=== PATIENT | female | born 1935 | race Caucasian/White ===

== ENCOUNTER 2020-06-08 01:41 | Inpatient (IN) ==
--- NOTE | 2020-06-08 01:57 | Emergency Department Note ---
SOB HPI General Chief Complaint: Shortness of Breath/Dyspnea Stated Complaint: shortness of breath Time Seen by Provider: 06/08/20 01:52 Source: EMS Mode of arrival: EMS Limitations: no limitations History of Present Illness HPI Narrative: Narrative: This is a dialysis patient and resident of [facility] [place] who apparently refused her last 2 dialysis runs but tonight for some reason and became short of breath and the family decided to have her be a full code and come to the emergency room. Patient has a history of dementia and is not conversant. Related Data Home Medications Medication Instructions Recorded Confirmed PreserVison AREDS MISCELLANE 07/27/18 09/01/18 furosemide 80 mg tablet 40 mg PO QDAY 07/27/18 09/01/18 levothyroxine 137 mcg tablet 137 mcg PO QDAY 07/27/18 09/01/18 lovastatin 40 mg tablet 40 mg PO BID tab 07/27/18 09/01/18 methocarbamol 500 mg tablet 1,000 mg PO QID 07/27/18 09/01/18 midodrine 10 mg tablet mg PO tab 07/27/18 09/01/18 multivitamin 1 tab PO .COMPLEX 07/27/18 09/01/18 ondansetron 8 mg disintegrating 8 mg PO TID PRN 07/27/18 09/01/18 tablet sucroferric oxyhydroxide 500 mg 500 mg PO QDAY tab 07/27/18 09/01/18 chewable tablet tramadol 50 mg tablet See Rx Instructions PO QID PRN 07/27/18 09/01/18 Allergies Allergy/AdvReac Type Severity Reaction Status Date / Time codeine Allergy Unknown Unknown Verified 09/01/18 15:12 Cortisone Allergy Unknown Unknown Verified 09/01/18 15:12 Review of Systems ROS ROS Narrative: Narrative: Limitations: ROS unobtainable due to patients medical condition [facility] Narrative Patient History Narrative: Narrative: Medical/Surgical/Family History All Active Problems (Updated 06/08/20 @ 08:32 by Fabian Sesay MD) Urinary tract infection (Acute) Congestive heart failure (CHF) (Chronic) Flank pain (Chronic) Cystic kidney disease (Chronic) E. coli urinary tract infection (Chronic) Anemia of chronic disease (Chronic) Iron deficiency anemia (Chronic) Hypertensive urgency (Chronic) Hypercalcemia (Chronic) Anxiety (Chronic) Chronic low back pain (Chronic) Headache (Chronic) Constipation (Chronic) Nausea (Chronic) Generalized weakness (Chronic) Heart murmur (Chronic ~11/11/17) Abnormal weight loss (Chronic ~11/12/17) Osteopenia (Chronic ~11/11/17) Spinal stenosis of lumbar region (Chronic ~11/11/17) Cyst of pancreas (Chronic ~11/12/17) Diverticulitis of colon (Chronic ~02/02/18) Lymphedema (Chronic ~11/11/17) Hypertensive disorder (Chronic ~11/11/17) Obstructive sleep apnea syndrome (Chronic ~11/11/17) Insomnia (Chronic ~11/11/17) Depressive disorder (Chronic ~11/11/17) Anemia (Chronic ~11/11/17) Hypothyroidism (Chronic ~11/11/17) Vitamin D deficiency (Chronic) Vitamin B12 deficiency (Chronic) Urge incontinence (Chronic) Swelling of left lower extremity (Chronic) Renal osteodystrophy (Chronic) Severe obesity (Chronic) Nocturia (Chronic) Morbid obesity (Chronic) Limb swelling (Chronic) Hyperuricemia (Chronic) Hypertension, essential (Chronic) Secondary hyperparathyroidism of renal origin (Chronic) Hyperlipidemia (Chronic) Hypertensive chronic kidney disease (Chronic) Gout (Chronic) Edema (Chronic ~09/26/11) Type 2 diabetes mellitus without complications (Chronic) Degenerative joint disease (Chronic) Anemia in chronic kidney disease (Chronic) Chronic kidney disease, stage 4 (severe) (Chronic ~08/12/12) Medical History (Updated 06/08/20 @ 08:32 by Fabian Sesay MD) Abnormal weight loss (Chronic ~11/12/17) Anemia (Chronic ~11/11/17) Anemia in chronic kidney disease (Chronic) Anemia of chronic disease (Chronic) Anxiety (Chronic) Chronic kidney disease, stage 4 (severe) (Chronic ~08/12/12) Chronic low back pain (Chronic) Congestive heart failure (CHF) (Chronic) Constipation (Chronic) Cyst of pancreas (Chronic ~11/12/17) Cystic kidney disease (Chronic) Degenerative joint disease (Chronic) Depressive disorder (Chronic ~11/11/17) Diverticulitis of colon (Chronic ~02/02/18) E. coli urinary tract infection (Chronic) Edema (Chronic ~09/26/11) Flank pain (Chronic) Generalized weakness (Chronic) Gout (Chronic) Headache (Chronic) Heart murmur (Chronic ~11/11/17) Hypercalcemia (Chronic) Hyperlipidemia (Chronic) Hypertension, essential (Chronic) Hypertensive chronic kidney disease (Chronic) Hypertensive disorder (Chronic ~11/11/17) Hypertensive urgency (Chronic) Hyperuricemia (Chronic) Hypothyroidism (Chronic ~11/11/17) Insomnia (Chronic ~11/11/17) Iron deficiency anemia (Chronic) Limb swelling (Chronic) Lymphedema (Chronic ~11/11/17) Morbid obesity (Chronic) Nausea (Chronic) Nocturia (Chronic) Obstructive sleep apnea syndrome (Chronic ~11/11/17) Osteopenia (Chronic ~11/11/17) Renal osteodystrophy (Chronic) Secondary hyperparathyroidism of renal origin (Chronic) Severe obesity (Chronic) Spinal stenosis of lumbar region (Chronic ~11/11/17) Swelling of left lower extremity (Chronic) Type 2 diabetes mellitus without complications (Chronic) Urge incontinence (Chronic) Vitamin B12 deficiency (Chronic) Vitamin D deficiency (Chronic) Surgical History History of appendectomy (Chronic) History of arthroscopic knee surgery (Chronic ~2005) History of breast surgery (Chronic) History of cholecystectomy (Chronic) History of hernia repair (Chronic) History of hysterectomy (Chronic) History of ovarian cystectomy (Chronic) Benign History of salpingo-oophorectomy (Chronic) History of tonsillectomy and adenoidectomy (Chronic) Family History Father Hypertension, essential Heart disease Brother Macular degeneration Mother Kidney disease Other Bipolar disorder Emphysema, unspecified Heart failure Myocardial infarction Social History Smoking Status: Former smoker Alcohol Intake Frequency: does not drink Exam Narrative Narrative: Narrative: General Limitations: no limitations Head Head: Present atraumatic, normocephalic and normal inspection Eye Eye: Present normal appearance; Absent scleral icterus and conjunctival injection Chest Chest: Present normal inspection and symmetric chest wall rise Respiratory Respiratory: Present rales/crackles Cardiovascular Cardiovascular: Present regular rate, normal rhythm and normal heart sounds Adbominal Abdominal: Present soft; Absent distention and tenderness Extremities Extremities: Present pedal edema and pretibial edema Skin Skin: Present warm (WNL) and dry; Absent diaphoresis Course Vital Signs Vital signs: Vital Signs Temperature 98.1 F 06/08/20 01:44 Pulse Rate 118 H 06/08/20 01:44 Respiratory Rate 23 H 06/08/20 01:44 Blood Pressure 132/90 06/08/20 01:44 Pulse Oximetry (%) 96 06/08/20 01:44 Temperature 98.1 F 06/08/20 01:44 Pulse Rate 93 H 06/08/20 08:09 Respiratory Rate 16 06/08/20 08:09 Blood Pressure 80/45 06/08/20 08:09 Pulse Oximetry (%) 90 06/08/20 08:09 MDM MDM Narrative Medical decision making narrative: Narrative: Hyperkalemia was treated with rectal Kayexalate 60 g albuterol 10 mg and insulin and glucose. She was given Levaquin 750 mg for the UTI. We did give her Lasix with no output. I discussed the case with Dr. Roy and Dr. Avila she will be admitted to the hospital for acute dialysis. Lab Data Lab results reviewed: Yes I reviewed the patient's lab results. Lab results narrative: Potassium was 6.2 BNP was 19,000. She had a urinalysis consistent with UTI. Radiology Data Radiology results reviewed: Yes I reviewed the patient's radiology results. Radiology results narrative: Chest x-ray shows fluid overload to my reading but it is hard to read due to her obesity. Discharge Plan Patient/Caregiver Discharge Instructions Pt seen by [facility]/PA only: No Clinical Impression: Congestive heart failure (CHF), Chronic kidney disease, stage 4 (severe), Urinary tract infection Patient Disposition: Xfer As Inpt ([facility]) Follow up with: Parish Millan MD [Primary Care Provider] - Prescriptions: No Action furosemide 80 mg tablet 40 mg PO QDAY RF: 0 levothyroxine 137 mcg tablet 137 mcg PO QDAY RF: 0 lovastatin 40 mg tablet 40 mg PO BID RF: 0 midodrine 10 mg tablet PO RF: 0 multivitamin [Multiple Vitamins] tablet 1 tab PO .COMPLEX RF: 0 ondansetron 8 mg disintegrating tablet 8 mg tablet,disintegrating 8 mg PO TID PRNRF: 0 PreserVison AREDS MISCELLANE RF: 0 methocarbamol [Robaxin] 500 mg tablet 1,000 mg PO QID RF: 0 tramadol 50 mg tablet See Rx Instructions PO QID PRNRF: 0 Velphoro 500 mg tablet,chewable 500 mg PO QDAY RF: 0
[2020-06-08] MEDS ORDERED: FUROSEMIDE 40 MG/4 ML VIAL IV ONE ×2 (02:28→02:39)
[2020-06-08] MEDS ORDERED: 0.9 % SODIUM CHLORIDE 1,000 ML IV ONE (03:04)
[2020-06-08] MEDS ORDERED: INSULIN REGULAR, HUMAN 1 UNIT/0.01 ML UNIT IV ONE (04:38)
[2020-06-08] MEDS ORDERED: LEVOFLOXACIN 750 MG/150 ML BAG IV ONE ×2 (04:38→06:24)
[2020-06-08] MEDS ORDERED: DEXTROSE 50% 50 ML VIAL IV ONE ×2 (04:38→04:51)
[2020-06-08] MEDS ORDERED: ALBUTEROL SULFATE 5 MG/ML NEB SOLUTION BOTTLE NEB ONE ×2 (04:38→04:50)
[2020-06-08] MEDS ORDERED: SODIUM POLYSTYRENE SULFONATE 15 GM/60 ML SUSPENSION ONE (04:52)
[2020-06-08] MEDS ORDERED: INSULIN REGULAR, HUMAN 1 UNIT/0.01 ML UNIT ONE (04:53)
[2020-06-08] MEDS ORDERED: SODIUM POLYSTYRENE SULFONATE 15 GM/60 ML SUSPENSION PO ONE (05:36)
--- NOTE | 2020-06-08 08:17 | XRay Report ---
CLINICAL INFORMATION: sob COMPARISON: None. FINDINGS: The heart is moderately enlarged. Right IJ double-lumen catheter tip overlies the SVC right atrial junction in satisfactory position. Mediastinum is normal. Pulmonary vessels are moderately distended and there is mild interstitial edema probably perihilar regions. Moderate bilateral pleural effusions and moderate regions of dense consolidated atelectasis or infiltrate in both medial bases noted IMPRESSION: Moderate CHF Moderate sized consolidated infiltrate or atelectasis both medial bases with moderate bilateral pleural effusions Interpreted and Authenticated by: Erick Campbell 06/08/20
[2020-06-08] MEDS ORDERED: SODIUM POLYSTYRENE SULFONATE 15 GM/60 ML SUSPENSION PO SCH (09:00)
--- NOTE | 2020-06-08 09:31 | Consultation ---
DATE OF CONSULTATION: 06/08/2020 REASON FOR CONSULTATION: End-stage renal disease, fluid overload, and hyperkalemia. HISTORY OF PRESENT ILLNESS: The patient is an 84-year-old female with past medical history significant for end-stage renal disease on hemodialysis. She dialyzes three times a week. Apparently last week or so, her son had made her not continue her antidepressants, and she felt acutely depressed somewhat. She missed her last three dialysis treatments. Last night, she was found to be hypoxic and obtunded. For that reason, she was transferred to the emergency room at [facility]. In the emergency room, she continued to remain hypoxic and obtunded. Her chest x-ray showed volume overload. Her potassium was elevated. For that reason, a renal consultation was obtained. PAST MEDICAL HISTORY: 1. End-stage renal disease on hemodialysis. 2. History of chronic congestive heart failure. 3. History of anemia related to kidney disease. 4. History of hypertension. 5. Lymphedema with both lower extremities. 6. Obstructive sleep apnea. 7. Depression. 8. Vitamin D deficiency. 9. Renal osteodystrophy. FAMILY HISTORY: Significant for bipolar disorder, emphysema, and hypertension. SOCIAL HISTORY: She is currently staying at a facility. No history of smoking or alcohol use. MEDICATIONS: The medication list is not accurate, but she is supposed to be on Lasix. I think sertraline was the medication she is to take that has been discontinued. She is also on Tums with meals. REVIEW OF SYSTEMS: I could not obtain a review of systems as she is fairly obtunded. PHYSICAL EXAMINATION: GENERAL: On examination, she is obtunded, not arousable. She is on a non-rebreathing mask. HEENT: NC/AT. Pupils are reactive. External auditory canal appears normal. NECK: Supple. Does have about 10 cm of jugular venous distention. No lymphadenopathy, no thyromegaly. CHEST: Decreased air entry bilaterally. Rales heard in both bases. CARDIOVASCULAR: S1, S2 heard. No S3, S4. She has a 3/6 systolic murmur. ABDOMEN: Soft, nontender. No organomegaly. Positive bowel sounds. EXTREMITIES: Showed 3+ edema bilaterally. LABORATORY DATA: I was told that her potassium was 6.7, but I cannot see the lab results on the computer for some reason. IMAGING: Chest x-ray showed moderate congestive heart failure. ASSESSMENT AND PLAN: 1. End-stage renal disease, now currently volume overloaded and hyperkalemic. We will dialyze her on acute basis. We will attempt to remove about 3 kilos of fluid as tolerated. She may need another dialysis treatment tomorrow to optimize. 2. Urinary tract infection as per the hospitalist. 3. I will give her Lasix 120 mg x1 dose before the start of her dialysis. She also received treatment for hyperkalemia by the emergency room per Dr. Sesay. MIKE:marisela Job ID: [id number] Doc ID: [id number] Constantine Roy MD
--- NOTE | 2020-06-08 10:08 | Internal Med History&Physical ---
HPI History of Present Illness Patient information: Note initiated : 06/08/20 at 9:57 am Service Date, if different from initiated Date: [] Patient: Marianna Valencia a 84 y/o F admitted on 06/08/20 for SOB . Chief Complaint: [] History of present illness: Ms. Valencia is a 84 year old F Patient presents from [facility] due to increased shortness of breath and decreased LOC and hypoxic. She is refused last several sessions of hemodialysis. She does have a history of dementia. She also recently stopped her antidepressants. Chest x-ray doing volume overload. She typically is on 4 L of oxygen but was satting around 80 on arrival to the ED. Is currently on 7 L oxygen mask in the ICU. She says she does not feel too bad. She says her shortness of breath is not too bad. She says she has had nocturnal coughing for the over the past 6 months. Report of diarrhea per ICU staff She received Kayexalate and Lasix per Dr. Roy and will get urgent hemodialysis. Review of Systems: Pertinent positives as above. Denies headache/fever/chills/n ausea/vomiting/chest or abdominal pain. Remaining 10 point review of system reviewed negative PFSH PFSH All Active Problems (Updated 06/08/20 @ 08:32 by Fabian Sesay MD) Urinary tract infection (Acute) Congestive heart failure (CHF) (Chronic) Flank pain (Chronic) Cystic kidney disease (Chronic) E. coli urinary tract infection (Chronic) Anemia of chronic disease (Chronic) Iron deficiency anemia (Chronic) Hypertensive urgency (Chronic) Hypercalcemia (Chronic) Anxiety (Chronic) Chronic low back pain (Chronic) Headache (Chronic) Constipation (Chronic) Nausea (Chronic) Generalized weakness (Chronic) Heart murmur (Chronic ~11/11/17) Abnormal weight loss (Chronic ~11/12/17) Osteopenia (Chronic ~11/11/17) Spinal stenosis of lumbar region (Chronic ~11/11/17) Cyst of pancreas (Chronic ~11/12/17) Diverticulitis of colon (Chronic ~02/02/18) Lymphedema (Chronic ~11/11/17) Hypertensive disorder (Chronic ~11/11/17) Obstructive sleep apnea syndrome (Chronic ~11/11/17) Insomnia (Chronic ~11/11/17) Depressive disorder (Chronic ~11/11/17) Anemia (Chronic ~11/11/17) Hypothyroidism (Chronic ~11/11/17) Vitamin D deficiency (Chronic) Vitamin B12 deficiency (Chronic) Urge incontinence (Chronic) Swelling of left lower extremity (Chronic) Renal osteodystrophy (Chronic) Severe obesity (Chronic) Nocturia (Chronic) Morbid obesity (Chronic) Limb swelling (Chronic) Hyperuricemia (Chronic) Hypertension, essential (Chronic) Secondary hyperparathyroidism of renal origin (Chronic) Hyperlipidemia (Chronic) Hypertensive chronic kidney disease (Chronic) Gout (Chronic) Edema (Chronic ~09/26/11) Type 2 diabetes mellitus without complications (Chronic) Degenerative joint disease (Chronic) Anemia in chronic kidney disease (Chronic) Chronic kidney disease, stage 4 (severe) (Chronic ~08/12/12) Medical History (Updated 06/08/20 @ 08:32 by Fabian Sesay MD) Abnormal weight loss (Chronic ~11/12/17) Anemia (Chronic ~11/11/17) Anemia in chronic kidney disease (Chronic) Anemia of chronic disease (Chronic) Anxiety (Chronic) Chronic kidney disease, stage 4 (severe) (Chronic ~08/12/12) Chronic low back pain (Chronic) Congestive heart failure (CHF) (Chronic) Constipation (Chronic) Cyst of pancreas (Chronic ~11/12/17) Cystic kidney disease (Chronic) Degenerative joint disease (Chronic) Depressive disorder (Chronic ~11/11/17) Diverticulitis of colon (Chronic ~02/02/18) E. coli urinary tract infection (Chronic) Edema (Chronic ~09/26/11) Flank pain (Chronic) Generalized weakness (Chronic) Gout (Chronic) Headache (Chronic) Heart murmur (Chronic ~11/11/17) Hypercalcemia (Chronic) Hyperlipidemia (Chronic) Hypertension, essential (Chronic) Hypertensive chronic kidney disease (Chronic) Hypertensive disorder (Chronic ~11/11/17) Hypertensive urgency (Chronic) Hyperuricemia (Chronic) Hypothyroidism (Chronic ~11/11/17) Insomnia (Chronic ~11/11/17) Iron deficiency anemia (Chronic) Limb swelling (Chronic) Lymphedema (Chronic ~11/11/17) Morbid obesity (Chronic) Nausea (Chronic) Nocturia (Chronic) Obstructive sleep apnea syndrome (Chronic ~11/11/17) Osteopenia (Chronic ~11/11/17) Renal osteodystrophy (Chronic) Secondary hyperparathyroidism of renal origin (Chronic) Severe obesity (Chronic) Spinal stenosis of lumbar region (Chronic ~11/11/17) Swelling of left lower extremity (Chronic) Type 2 diabetes mellitus without complications (Chronic) Urge incontinence (Chronic) Vitamin B12 deficiency (Chronic) Vitamin D deficiency (Chronic) Surgical History History of appendectomy (Chronic) History of arthroscopic knee surgery (Chronic ~2005) History of breast surgery (Chronic) History of cholecystectomy (Chronic) History of hernia repair (Chronic) History of hysterectomy (Chronic) History of ovarian cystectomy (Chronic) Benign History of salpingo-oophorectomy (Chronic) History of tonsillectomy and adenoidectomy (Chronic) Family History Father Hypertension, essential Heart disease Brother Macular degeneration Mother Kidney disease Other Bipolar disorder Emphysema, unspecified Heart failure Myocardial infarction Social History (Updated 09/01/18 @ 16:58 by Yen Cantu MD) smoking status: Former smoker alcohol intake frequency: does not drink seatbelt use: always MEDS/ALLERGIES Home Medications and Allergies Home Medications Medication Instructions Recorded Confirmed Type PreserVison AREDS MISCELLANE 07/27/18 09/01/18 History furosemide 80 mg tablet 40 mg PO QDAY 07/27/18 09/01/18 History levothyroxine 137 mcg tablet 137 mcg PO QDAY 07/27/18 09/01/18 History lovastatin 40 mg tablet 40 mg PO BID tab 07/27/18 09/01/18 History methocarbamol 500 mg tablet 1,000 mg PO QID 07/27/18 09/01/18 History midodrine 10 mg tablet mg PO tab 07/27/18 09/01/18 History multivitamin 1 tab PO .COMPLEX 07/27/18 09/01/18 History ondansetron 8 mg disintegrating 8 mg PO TID PRN 07/27/18 09/01/18 History tablet sucroferric oxyhydroxide 500 mg 500 mg PO QDAY tab 07/27/18 09/01/18 History chewable tablet tramadol 50 mg tablet See Rx Instructions PO QID PRN 07/27/18 09/01/18 History Allergies Allergy/AdvReac Type Severity Reaction Status Date / Time codeine Allergy Unknown Unknown Verified 09/01/18 15:12 Cortisone Allergy Unknown Unknown Verified 09/01/18 15:12 EXAM Constitutional Vitals: Temp Pulse Resp BP Pulse Ox 98.1 F 93 H 16 89/44 90 06/08/20 09:25 06/08/20 09:25 06/08/20 09:25 06/08/20 09:25 06/08/20 09:25 Exam: General: Alert, Awake, No acute Distress Eyes/N/T: EOMI, PERRL, Head/Neck: neck supple, normocephalic atraumatic CV: RRR, 2/6 SM Pulm: b/l rhonchi/rales, no wheezing Abd: soft, nontender, +BS x4 Ext: no clubbing/cyanosis, b/l LE 3+ edema Neuro: Alert, no focal deficits, moves all extremities, CN 2-12 grossly intact, symmetrical strength b/l upper/lower, sensations intact b/l upper/lower Skin: warm/dry DATA Data Completed and Pending Labs: Labs from last 24 hours 06/08/20 06/08/20 06/08/20 02:03 01:53 01:53 WBC RBC Hgb Hct MCV MCH MCHC RDW Plt Count MPV Neut % (Auto) VBG Lactic Acid Pending Sodium Pending Potassium Pending Chloride Pending Carbon Dioxide Pending Anion Gap Pending BUN Pending Creatinine Pending GFR Calculation Pending Glucose Pending Calcium Pending Total Bilirubin Pending AST Pending ALT Pending Alkaline Phosphatase Pending NT-Pro-B Natriuret Pep Pending Total Protein Pending Albumin Pending Globulin Pending Albumin/Globulin Ratio Pending Urine Color Pending Urine Appearance Pending Urine pH Pending Ur Specific [place] Pending Urine Protein Pending Urine Glucose (UA) Pending Urine Ketones Pending Urine Occult Blood Pending Urine Nitrate Pending Urine Bilirubin Pending Urine Urobilinogen Pending Ur Leukocyte Esterase Pending 06/08/20 01:53 WBC Pending RBC Pending Hgb Pending Hct Pending MCV Pending MCH Pending MCHC Pending RDW Pending Plt Count Pending MPV Pending Neut % (Auto) Pending VBG Lactic Acid Sodium Potassium Chloride Carbon Dioxide Anion Gap BUN Creatinine GFR Calculation Glucose Calcium Total Bilirubin AST ALT Alkaline Phosphatase NT-Pro-B Natriuret Pep Total Protein Albumin Globulin Albumin/Globulin Ratio Urine Color Urine Appearance Urine pH Ur Specific [place] Urine Protein Urine Glucose (UA) Urine Ketones Urine Occult Blood Urine Nitrate Urine Bilirubin Urine Urobilinogen Ur Leukocyte Esterase A/P Narrative A/P Narrative: A: *Acute hypoxic respiratory failure: 2/2 pulm edema, pt has missed several sessions of HD *Acute on chronic diastolic CHF (home O2 is 4L): *Atelectasis/Pleural effusions: *Hyperkalemia: *ESRD: Follows with Dr. Roy *Anemia, chronic: *UTI: *RELL: ?cpap *Depression: *Lymphedema b/l LE: *Hypothyroidism: *Dementia: she states brother is POA *Obesity: * P: -HD and hyperkalemia per Dr. Roy -O2 support and wean as able -Balaephin, pending UC - -?home cpap -?on midodrine at home for low bp - -pT/OT -Case management for placement -ppx: Heparin/TEDS or lymph wraps clarify code status Time Spent With Patient Time: Total time spent is greater than 50% in coordination of care (as documented) at patient's floor/unit and/or counseling patient:
[2020-06-08] MEDS: FUROSEMIDE 100 MG/10 ML VIAL IV SCH ×2 (10:16→21:34)
[2020-06-08] MEDS ORDERED: POTASSIUM CHLORIDE 40 MEQ in DEXTROSE 5% IN WATER 500 ML IV PRN (10:26)
[2020-06-08] MEDS ORDERED: POTASSIUM CHLORIDE 20 MEQ TABLET PO PRN (10:26)
[2020-06-08] MEDS ORDERED: MAGNESIUM SULFATE 2 GM/50 ML BAG IV PRN (10:26)
[2020-06-08] MEDS ORDERED: IPRATROPIUM/ALBUTEROL 3 ML AMPUL.NEB NEB PRN (10:26)
[2020-06-08] MEDS ORDERED: ONDANSETRON 4 MG/2 ML VIAL IV PRN (10:26)
[2020-06-08] MEDS ORDERED: ACETAMINOPHEN 325 MG TABLET PO PRN (10:26)
[2020-06-08] MEDS ORDERED: SENNOSIDES 1 TABLET PO PRN (10:26)
[2020-06-08] MEDS ORDERED: cefTRIAXone 1 GM in DEXTROSE 5% IN WATER 50 ML IV SCH (10:30)
[2020-06-08] MEDS ORDERED: cefTRIAXone 1 GM VIAL IV SCH (11:00)
[2020-06-08] MEDS: 0.9 % SODIUM CHLORIDE 10 ML SYRINGE IV SCH ×2 (11:49→15:29)
[2020-06-08] MEDS ORDERED: MIDODRINE 5 MG TABLET PO PRN (12:07)
[2020-06-08 12:15] LABS: Appearance,Urine Turbid (Clear); Bacteria,Urine 0 /hpf (0); Bilirubin,Urine Negative (Negative); Color,Urine Amber; Culture Indicated,Urine No; Glucose,Urine (UA) Negative (Negative); Ketones,Urine Negative (Negative); Leukocyte Esterase,Urine 250 /ug (Negative); Nitrate,Urine Negative (Negative); Protein,Urine 100 mg/dL (Negative); Specific Gravity,Urine 1.015 (1.000-1.035); Urine Blood 0.03 mg/dL (Negative); Urine RBC > 182 /hpf (0-1); Urine Squamous Epithelial Cell 7 /hpf (0-4); Urine Transitional Epi Cells 7 /hpf (0-2); Urine WBC > 182 /hpf (0-4); Urobilinogen,Urine Negative
[2020-06-08 12:22] LABS: ALT/SGPT 5 U/L (<40); AST/SGOT 8 U/L (<32); Albumin 3.6 gm/dL (3.2-5.2); Alkaline Phosphatase 66 U/L (39-117); Bilirubin,Total 0.3 mg/dL (0.1-1.0); Blood Urea Nitrogen 66 mg/dL (8-23); Calcium 10.3 mg/dL (8.6-10.4); Carbon Dioxide 25 mmol/L (22-30); Chloride 99 mmol/L (96-108); Globulin 3.6 gm/dL (2.2-3.7); Glomerular Filtration Rate 4; Glucose 106 mg/dL (70-105)
[2020-06-08] MEDS ORDERED: ALTEPLASE 2 MG VIAL IV ONE ×2 (13:09→15:56)
[2020-06-08] MEDS ORDERED: traMADol 50 MG TABLET PO PRN (15:11)
[2020-06-08] MEDS ORDERED: POLYETHYLENE GLYCOL 3350 17 GM PACKET PO PRN (15:34)
[2020-06-08] MEDS ORDERED: CAMPHOR MENTHOL TOPICAL PRN (15:36)
[2020-06-08] MEDS: SEVELAMER 800 MG TABLET PO SCH (18:48)
[2020-06-08] MEDS ORDERED: morphine 4 MG/ML VIAL IV PRN (20:18)
[2020-06-08] MEDS: DOCUSATE SODIUM 100 MG CAPSULE PO SCH (20:56)
[2020-06-08] MEDS: SIMVASTATIN 20 MG TABLET PO SCH (20:56)
[2020-06-08] MEDS: HEPARIN 5,000 UNIT/ML VIAL SQ SCH (21:35)
[2020-06-09] MEDS: 0.9 % SODIUM CHLORIDE 10 ML SYRINGE IV SCH ×4 (02:53→21:14)
[2020-06-09 04:02] LABS: Basophils # (Auto) 0.07 K/mcL (0.00-0.20); Basophils % (Auto) 0.9 % (0.0-2.0); Eosinophils # (Auto) 0 K/mcL (0.00-0.70); Eosinophils % (Auto) 0 % (0.0-7.0); Hematocrit 36.9 % (36.0-48.0); Hemoglobin 10.7 g/dL (12.0-15.0); Lymphocytes # (Auto) 0.75 K/mcL (1.50-4.80); Lymphocytes % (Auto) 9.8 % (15.0-49.0); Mean Cell Volume 103.4 fL (80.0-100.0); Mean Platelet Volume 11.5 fL (7.4-10.4); Monocytes # (Auto) 0.67 K/mcL (0.10-0.90); Monocytes % (Auto) 8.7 % (1.0-12.0); Neutrophils % (Auto) 80.6 % (38.0-78.0); Platelet Count 253 K/mcL (140-440); RBC 3.57 M/mcL (4.00-5.20); Red Cell Distribution Width 16.6 % (11.5-14.5); WBC 7.7 K/mcL (4.5-11.0)
[2020-06-09 06:32] LABS: Basophils # (Auto) 0.07 K/mcL (0.00-0.20); Basophils % (Auto) 1.2 % (0.0-2.0); Eosinophils # (Auto) 0.11 K/mcL (0.00-0.70); Eosinophils % (Auto) 1.9 % (0.0-7.0); Hematocrit 35.7 % (36.0-48.0); Hemoglobin 9.5 g/dL (12.0-15.0); Lymphocytes # (Auto) 0.66 K/mcL (1.50-4.80); Lymphocytes % (Auto) 11.5 % (15.0-49.0); Mean Cell Volume 114.8 fL (80.0-100.0); Mean Corpuscular HGB Conc 26.6 g/dL (31.0-36.0); Mean Platelet Volume 10.8 fL (7.4-10.4); Monocytes # (Auto) 0.77 K/mcL (0.10-0.90); Monocytes % (Auto) 13.4 % (1.0-12.0); Platelet Count 152 K/mcL (140-440); RBC 3.11 M/mcL (4.00-5.20); Red Cell Distribution Width 17.2 % (11.5-14.5); WBC 5.8 K/mcL (4.5-11.0)
--- NOTE | 2020-06-09 07:49 | Internal Med Progress Note ---
SUBJECTIVE Subjective Patient information: Note initiated : 06/09/20 at 7:46 am Service Date, if different from initiated Date: [] Patient: Marianna Valencia 84 y/o F admitted on 06/08/20 for SOB . Chief Complaint: [] Interval history: History of present illness: Ms. Valencia is a 84 year old F Patient presents from [facility] due to increased shortness of breath and decreased LOC and hypoxic. She is refused last several sessions of hemodialysis . She does have a history of dementia. She also recently stopped her antidepressants. Chest x-ray doing volume overload. She typically is on 4 L of oxygen but was satting around 80 on arrival to the ED. Is currently on 7 L oxygen mask in the ICU. She says she does not feel too bad. She says her shortness of breath is not too bad. She says she has had nocturnal coughing for the over the past 6 months. Report of diarrhea per ICU staff She received Kayexalate and Lasix per Dr. Roy and will get urgent hemodialysis. 06/09 Intermittent low blood pressures. Did not do well with IV morphine last night. Was unable to take home tramadol orally because of concern for aspiration. Will change IV Tylenol. May get dialysis today. Chest x-ray much improved pulmonary edema also shows atelectasis and likely some right base infiltrate from aspiration. Review of Systems: denies headache/fever/chills/nausea/vomiting/chest or abdominal pain/diarrhea. Otherwise see above. Constitutional Vitals: Vital Signs Temp Pulse Resp BP Pulse Ox 98.9 F 93 H 19 144/56 95 06/09/20 04:00 06/09/20 06:01 06/09/20 06:01 06/09/20 06:01 06/09/20 06:01 Period Temp Pulse Resp BP Sys/Schaefer Pulse Ox Last 24 Hr 97 F-98.9 F 51-102 13-32 75-187/34-153 76-100 Intake and Output 06/08/20 06/09/20 06/09/20 21:59 05:59 13:59 Intake Total 0 Output Total 1979 Weight 91.49 kg Intake & Output: Intake & Output 06/08/20 06/09/20 06/09/20 21:59 05:59 13:59 Intake Total 0 Output Total 1979 Weight 91.49 kg Intake: Oral 0 Output: Void Amount 5 Hemodialysis UF 1979 Other: Urine Appearance Purulent Uretheral (Linda) Cloudy Cloudy Purulent Purulent Urine Color Light Antonia Uretheral (Linda) Blood Tinged Blood Tinged Stool Size Small Stool Color Brown Stool Consistency Soft # Bowel Movements 1 # of times incontinent of 1 Bowels Exam: General: Alert, Awake, No acute Distress Eyes/N/T: EOMI, , Head/Neck: neck supple, CV: RRR, 2/6 SM Pulm: b/l rhonchi/rales improving, no wheezing Abd: soft, nontender, +BS x4 Ext: no clubbing/cyanosis, b/l LE 2-3+ edema Neuro: Alert, no focal deficits, moves all extremities, Skin: warm/dry OBJ DATA Labs CBC & Chem 7: 06/09/20 04:54 06/08/20 01:53 Labs: Abnormal Lab Results 06/09/20 06/08/20 06/08/20 04:54 02:03 01:53 RBC 3.11 L Hgb 9.5 L Hct 35.7 L MCV 114.8 H MCHC 26.6 L RDW 17.2 H MPV 10.8 H Neut % (Auto) Lymph % (Auto) 11.5 L [place] % (Auto) 13.4 H Lymph # (Auto) 0.66 L VBG Lactic Acid 2.2 H Potassium BUN Creatinine Glucose NT-Pro-B Natriuret Pep Urine Appearance Turbid A Urine Occult Blood 0.03 A Ur Leukocyte Esterase 250 A Urine RBC > 182 H Urine WBC > 182 H Ur Squamous Epith Cells 7 H Ur Transition Epith Cell 7 H 06/08/20 06/08/20 01:53 01:53 RBC 3.57 L Hgb 10.7 L Hct MCV 103.4 H MCHC 29.0 L RDW 16.6 H MPV 11.5 H Neut % (Auto) 80.6 H Lymph % (Auto) 9.8 L [place] % (Auto) Lymph # (Auto) 0.75 L VBG Lactic Acid Potassium 6.2 H* BUN 66 H Creatinine 8.3 H* Glucose 106 H NT-Pro-B Natriuret Pep 54559.0 H Urine Appearance Urine Occult Blood Ur Leukocyte Esterase Urine RBC Urine WBC Ur Squamous Epith Cells Ur Transition Epith Cell Meds: Medications Acetaminophen (Tylenol) 650 mg PO Q6HP PRN PRN Reason: PAIN/FEVER > 101 Albuterol/Ipratropium (Duoneb) 3 ml NEB Q4HP PRN PRN Reason: Shortness Of Breath Ceftriaxone Sodium (Rocephin) 1 gm IV DAILY [facility] Last Admin: 06/08/20 11:48 Dose: 1 gm Documented by: Docusate Sodium (Colace) 100 mg PO BID [facility] Last Admin: 06/08/20 20:56 Dose: Not Given Documented by: Furosemide (Lasix) 100 mg IV Q12 [facility] Last Admin: 06/08/20 21:34 Dose: 100 mg Documented by: Heparin Sodium (Porcine) (Heparin) 5,000 unit SQ Q12 [facility] Last Admin: 06/08/20 21:35 Dose: 5,000 unit Documented by: Potassium Chloride 40 meq/ (Dextrose) 520 mls @ 130 mls/hr IV UD PRN PRN Reason: Potassium < 3 Magnesium Sulfate (Magnesium Sulfate) 2 gm in 50 mls @ 50 mls/hr IV UD PRN PRN Reason: Magnesium </= 1.6 Levothyroxine Sodium (Synthroid) 150 mcg PO ACB [facility] Midodrine (Midodrine Hcl) 20 mg PO DAILYP PRN PRN Reason: Blood Pressure - Low Last Admin: 06/08/20 17:03 Dose: 20 mg Documented by: Morphine Sulfate (Morphine) 1 - 3 mg IV Q4HP PRN; Protocol PRN Reason: Per Pain Protocol Last Admin: 06/08/20 21:18 Dose: 1 mg Documented by: Ondansetron HCl (Zofran) 4 mg IV Q4HP PRN PRN Reason: Nausea And Vomiting Camphor-Menthol (Ointment) 1 dose TOPICAL Q6HP PRN PRN Reason: Pain Polyethylene Glycol (Miralax) 17 gm PO BIDP PRN PRN Reason: Constipation Potassium Chloride (Kdur) 40 meq PO UD PRN PRN Reason: Potassium < 3 Senna (Senokot) 2 tab PO DAILYP PRN PRN Reason: Constipation Sertraline HCl (Zoloft) 25 mg PO QDAY [facility] Sevelamer Carbonate (Renvela) 800 mg PO AC [facility] Last Admin: 06/08/20 18:48 Dose: Not Given Documented by: Simvastatin (Zocor) 20 mg PO HS [facility] Last Admin: 06/08/20 20:56 Dose: Not Given Documented by: Sodium Chloride (Saline Flush) 10 ml IV Q8 [facility] Last Admin: 06/09/20 05:50 Dose: 10 ml Documented by: Tramadol HCl (Ultram) 50 mg PO Q12HP PRN; Protocol PRN Reason: Pain Last Admin: 06/08/20 15:39 Dose: 50 mg Documented by: A/P Narrative A/P Narrative: A: *Acute on chornic hypoxic/hypercapnic respiratory failure: 2/2 pulm edema and aspiration PNA, pt missed several HD sessions -7L oxymask with sats mid 90's, wean down. covid neg -CXR with near complete resolution of chr, moderate atelectasis and left pleural effusion, small right base infiltrate *Acute on chronic diastolic CHF (home O2 is 4L): -improving *Aspiration PNA: *Atelectasis/Pleural effusions: *Intermittent hypotension: *Hyperkalemia: *ESRD: Follows with Dr. Roy *Anemia, chronic: *UTI: *RELL: has not been on cpap at home *Depression: *Lymphedema b/l LE: *Hypothyroidism: *Dementia: she states brother is POA *Obesity: * P: -HD and hyperkalemia per Dr. Roy -O2 support and wean as able -Rocephin, pending UC -f/u cxr -home cpap -cont home midodrine prn -ST eval, dysphagia diet -pT/OT -Case management for placement -ppx: Heparin/TEDS or lymph wraps ?full code Time Spent With Patient Time: Total time spent is greater than 50% in coordination of care (as documented) at patient's floor/unit and/or counseling patient: QUALITY VTE Deep Vein Thrombosis/Pulmonary Embolism Present on Admission: No
--- NOTE | 2020-06-09 08:00 | XRay Report ---
CLINICAL INFORMATION: f/u edema, ?pna COMPARISON: 06/08/2020 FINDINGS: Moderate cardiomegaly is unchanged. Right IJ double-lumen catheter in stable satisfactory position. Mediastinum is unremarkable. Pulmonary vessels have returned to normal in caliber. Edema has improved with moderate residual perihilar region. Moderate consolidated infiltrate/atelectasis in the left base with moderate left pleural effusion unchanged. Smaller infiltrate in the right basal has progressed. Moderate right pleural effusion has increased in size. IMPRESSION: Near complete interval resolution CHF. Moderate consolidated region of atelectasis less likely infiltrate left base with moderate left pleural effusion stable. Smaller right basilar infiltrate moderate right pleural effusion has worsened slightly Interpreted and Authenticated by: Erick Campbell 06/09/20
[2020-06-09] MEDS ORDERED: NALOXONE HCL 0.4 MG/ML VIAL IV ONE (08:40)
[2020-06-09] MEDS ORDERED: 0.9 % SODIUM CHLORIDE 500 ML IV ONE (08:40)
[2020-06-09] MEDS ORDERED: NOREPINEPHRINE BITARTRATE 16 MG in 0.9 % SODIUM CHLORIDE 234 ML IV PRN (08:42)
[2020-06-09] MEDS ORDERED: NALOXONE HCL 0.4 MG/ML VIAL ONE (08:42)
[2020-06-09] MEDS: SEVELAMER 800 MG TABLET PO SCH ×3 (08:45→17:51)
[2020-06-09] MEDS ORDERED: cefTRIAXone 1 GM VIAL IV SCH (09:00)
[2020-06-09] MEDS ORDERED: SERTRALINE 50 MG TABLET PO SCH (09:00)
[2020-06-09] MEDS ORDERED: FUROSEMIDE 80 MG TABLET PO SCH (09:00)
[2020-06-09] MEDS ORDERED: MIDODRINE HCL 10 MG TABLET PO SCH (09:00)
[2020-06-09] MEDS: HEPARIN 5,000 UNIT/ML VIAL SQ SCH ×2 (10:23→21:12)
[2020-06-09] MEDS: FUROSEMIDE 100 MG/10 ML VIAL IV SCH ×2 (10:24→21:12)
[2020-06-09] MEDS: MIDODRINE 5 MG TABLET PO PRN ×2 (10:24→17:29)
[2020-06-09] MEDS: LEVOTHYROXINE 150 MCG TABLET PO SCH (10:25)
[2020-06-09] MEDS: cefTRIAXone 2 GM in DEXTROSE 5% IN WATER 50 ML IV SCH (10:25)
[2020-06-09] MEDS ORDERED: cefTRIAXone 2 GM VIAL ONE (10:27)
[2020-06-09] MEDS ORDERED: VASOPRESSIN 20 UNIT in DEXTROSE 5% IN WATER 99 ML IV PRN (10:45)
--- NOTE | 2020-06-09 10:54 | Nephrology Progress Note ---
SUBJECTIVE Subjective Patient information: Note initiated : 06/09/20 at 10:51 am Service Date, if different from initiated Date: [] Patient: Marianna Valencia 84 y/o F admitted on 06/08/20 for SOB . Chief Complaint: obtunded this morning. Constitutional Vitals: Vital Signs Temp Pulse Resp BP Pulse Ox 98.9 F 93 H 19 144/56 95 06/09/20 04:00 06/09/20 06:01 06/09/20 06:01 06/09/20 06:01 06/09/20 06:01 Period Temp Pulse Resp BP Sys/Schaefer Pulse Ox Last 24 Hr 97 F-98.9 F 61-102 14-32 75-187/37-153 88-100 Intake and Output 06/08/20 06/09/20 06/09/20 21:59 05:59 13:59 Intake Total 0 Output Total 1979 Weight 201 lb 11.2 oz Intake & Output: Intake & Output 06/08/20 06/09/20 06/09/20 21:59 05:59 13:59 Intake Total 0 Output Total 1979 Weight 201 lb 11.2 oz Intake: Oral 0 Output: Void Amount Hemodialysis 1979 Other: Urine Appearance Purulent Uretheral (Linda) Cloudy Cloudy Purulent Purulent Urine Color Light Antonia Uretheral (Linda) Blood Tinged Blood Tinged Stool Size Small Stool Color Brown Stool Consistency Soft # Bowel Movements 1 # of times incontinent of 1 Bowels Responded to norcan alert and oriented. Lungs mar rales cardiac regular pa soft ext 2+ edema. A/P Assessment and plan (1) ESRD (end stage renal disease) on dialysis: Status: Acute Comment: Had dialysis yesterday. Will try again today. Labs are still pending. will use vassopressin and midodrine for bp support Time Spent With Patient Time: Total time spent is greater than 50% in coordination of care (as documented) at patient's floor/unit and/or counseling patient:
--- NOTE | 2020-06-09 11:22 | Procedure Note ---
PROC Central Line Placement Left IJ: Consent obtained: verbal consent Date of Procedure: 06/09/20 Time out performed: Yes Patient placed on monitor/pulse ox: Yes MD prep: mask, sterile gown and sterile gloves Central line prep: 2% Chlorhexidine scrub Local anesthesia used: lidocaine 1% Amount of anesthesia used (mls): 2 Ultrasound used for placement: Yes Central line lumen inserted: quad and 20 cm Post procedure: sutured in place and all ports aspirated, flushed, capped Patient tolerated procedure: well Additional comments: stat cxr ordered to confirm placement
[2020-06-09] MEDS: DOCUSATE SODIUM 100 MG CAPSULE PO SCH ×2 (13:17→20:38)
[2020-06-09] MEDS: 0.9 % SODIUM CHLORIDE 250 ML IV SCH ×4 (13:17→22:10)
--- NOTE | 2020-06-09 13:37 | XRay Report ---
CLINICAL INFORMATION: central line placement COMPARISON: 06/09/2020 FINDINGS: Right IJ double-lumen catheter remains in stable satisfactory position. A new left IJ line has been placed - the tip is malpositioned overlying the expected location the right internal jugular vein. No pneumothorax.. The heart is moderately enlarged, but stable. Mediastinum is unremarkable. Pulmonary vessels remain normal. Moderate consolidated atelectasis or infiltrate left base with moderate left pleural effusion unchanged. Moderate infiltrate in the right base and moderate right pleural effusion is also unchanged. IMPRESSION: 1. Moderate consolidated atelectasis/infiltrate left base and left pleural effusion - stable 2. Moderate right basilar infiltrate with effusion stable 3. Left IJ line malpositioned - tip overlies the right IJ. Suggest withdraw catheter 5.5 cm. Interpreted and Authenticated by: Erick Campbell 06/09/20
--- NOTE | 2020-06-09 13:40 | XRay Report ---
CLINICAL INFORMATION: central line placement COMPARISON: 06/09/2020 1125 hours FINDINGS: Left IJ line has been retracted - tip now overlies the brachial cephalic SVC junction. Right IJ double-lumen catheter in stable satisfactory position. Moderate cardiomegaly is unchanged. The mediastinum and pulmonary vessels normal. Moderate consolidated infiltrate or atelectasis left base and moderate left pleural effusion stable. Moderate right basilar infiltrate and effusion also stable. IMPRESSION: No change in moderate bibasilar atelectasis/infiltrate and effusions. Left IJ line now satisfactory position Interpreted and Authenticated by: Erick Campbell 06/09/20
[2020-06-09 18:40] LABS: ALT/SGPT < 5 U/L (<40); AST/SGOT 11 U/L (<32); Albumin 3.1 gm/dL (3.2-5.2); Alkaline Phosphatase 52 U/L (39-117); Bilirubin,Direct < 0.2 mg/dL (<0.3); Bilirubin,Total 0.2 mg/dL (0.1-1.0); Blood Urea Nitrogen 17 mg/dL (8-23); Calcium 8.9 mg/dL (8.6-10.4); Carbon Dioxide 28 mmol/L (22-30); Chloride 96 mmol/L (96-108); Globulin 3.2 gm/dL (2.2-3.7); Glomerular Filtration Rate 15; Glucose 87 mg/dL (70-105); Lactate Dehydrogenase 167 U/L (135-225); Triglycerides 126 mg/dL (<150); Uric Acid 1.9 mg/dL (2.5-8.0)
[2020-06-09] MEDS: SIMVASTATIN 20 MG TABLET PO SCH (21:13)
[2020-06-09] MEDS: SERTRALINE 50 MG TABLET PO SCH (21:13)
[2020-06-09] MEDS: ACETAMINOPHEN 650 MG/65 ML BAG IV PRN (21:34)
[2020-06-10] MEDS: 0.9 % SODIUM CHLORIDE 10 ML SYRINGE IV SCH ×3 (04:45→22:07)
[2020-06-10 07:04] LABS: ALT/SGPT < 5 U/L (<40); AST/SGOT 9 U/L (<32); Albumin/Globulin Ratio 1.1 (1.0-2.3); Alkaline Phosphatase 47 U/L (39-117); Bilirubin,Direct < 0.2 mg/dL (<0.3); Bilirubin,Total 0.2 mg/dL (0.1-1.0); Blood Urea Nitrogen 12 mg/dL (8-23); Calcium 8.9 mg/dL (8.6-10.4); Carbon Dioxide 29 mmol/L (22-30); Chloride 98 mmol/L (96-108); Globulin 2.7 gm/dL (2.2-3.7); Glomerular Filtration Rate 17; Glucose 71 mg/dL (70-105); Lactate Dehydrogenase 145 U/L (135-225); Phosphorous 2.7 mg/dL (2.5-4.5); Triglycerides 114 mg/dL (<150); Uric Acid 1.7 mg/dL (2.5-8.0)
[2020-06-10] MEDS: LEVOTHYROXINE 150 MCG TABLET PO SCH (07:49)
--- NOTE | 2020-06-10 08:05 | Internal Med Progress Note ---
SUBJECTIVE Subjective Patient information: Note initiated : 06/10/20 at 8:02 am Service Date, if different from initiated Date: [] Patient: Marianna Valencia 84 y/o F admitted on 06/08/20 for SOB . Chief Complaint: [] Interval history: History of present illness: Ms. Valencia is a 84 year old F Patient presents from [facility] due to increased shortness of breath and decreased LOC and hypoxic. She is refused last several sessions of hemodialysis . She does have a history of dementia. She also recently stopped her antidepressants. Chest x-ray doing volume overload. She typically is on 4 L of oxygen but was satting around 80 on arrival to the ED. Is currently on 7 L oxygen mask in the ICU. She says she does not feel too bad. She says her shortness of breath is not too bad. She says she has had nocturnal coughing for the over the past 6 months. Report of diarrhea per ICU staff She received Kayexalate and Lasix per Dr. Roy and will get urgent hemodialysis. 06/09 Intermittent low blood pressures. Did not do well with IV morphine last night. Was unable to take home tramadol orally because of concern for aspiration. Will change IV Tylenol. May get dialysis today. Chest x-ray much improved pulmonary edema also shows atelectasis and likely some right base infiltrate from aspiration. Review of Systems: denies headache/fever/chills/nausea/vomiting/chest or abdominal pain/diarrhea. Otherwise see above. Constitutional Vitals: Vital Signs Temp Pulse Resp BP Pulse Ox 97.6 F 88 21 119/55 99 06/10/20 06:01 06/10/20 06:01 06/10/20 06:01 06/10/20 06:01 06/10/20 06:01 Period Temp Pulse Resp BP Sys/Schaefer Pulse Ox Last 24 Hr 96.6 F-99 F 71-105 15-29 44-140/18-109 74-100 Intake and Output 06/09/20 06/10/20 06/10/20 21:59 05:59 13:59 Intake Total 305 Output Total 2029 305 Weight 89.086 kg Intake & Output: Intake & Output 06/09/20 06/10/20 06/10/20 21:59 05:59 13:59 Intake Total 305 Output Total 2029 Balance 305 Weight 89.086 kg Intake: IV 65 Oral 240 Output: Urine Catheter Amount 0 Hemodialysis UF 2029 Other: Feeding Ability Independent Urine Appearance Uretheral (Linda) Cloudy Purulent Urine Color Uretheral (Ilnda) Blood Tinged Exam: General: Alert, Awake, No acute Distress Eyes/N/T: EOMI, , Head/Neck: neck supple, CV: RRR, 2/6 SM Pulm: clearing b/l, no wheezing Abd: soft, nontender, +BS x4 Ext: no clubbing/cyanosis, b/l LE 2+ edema improved Neuro: Alert, no focal deficits, moves all extremities, Skin: warm/dry OBJ DATA Labs CBC & Chem 7: 06/09/20 04:54 06/10/20 04:58 Labs: Abnormal Lab Results 06/10/20 06/10/20 06/09/20 04:59 04:58 17:50 RBC Hgb Hct MCV MCHC RDW MPV Neut % (Auto) Lymph % (Auto) [place] % (Auto) Lymph # (Auto) VBG Lactic Acid Potassium BUN Creatinine 2.5 H Glucose Uric Acid 1.7 L NT-Pro-B Natriuret Pep Total Protein 5.7 L Albumin 3.0 L Procalcitonin 0.50 H 0.46 H Urine Appearance Urine Occult Blood Ur Leukocyte Esterase Urine RBC Urine WBC Ur Squamous Epith Cells Ur Transition Epith Cell 06/09/20 06/09/20 06/08/20 17:50 04:54 02:03 RBC 3.11 L Hgb 9.5 L Hct 35.7 L MCV 114.8 H MCHC 26.6 L RDW 17.2 H MPV 10.8 H Neut % (Auto) Lymph % (Auto) 11.5 L [place] % (Auto) 13.4 H Lymph # (Auto) 0.66 L VBG Lactic Acid Potassium BUN Creatinine 2.8 H Glucose Uric Acid 1.9 L NT-Pro-B Natriuret Pep Total Protein Albumin 3.1 L Procalcitonin Urine Appearance Turbid A Urine Occult Blood 0.03 A Ur Leukocyte Esterase 250 A Urine RBC > 182 H Urine WBC > 182 H Ur Squamous Epith Cells 7 H Ur Transition Epith Cell 7 H 06/08/20 06/08/20 06/08/20 01:53 01:53 01:53 RBC 3.57 L Hgb 10.7 L Hct MCV 103.4 H MCHC 29.0 L RDW 16.6 H MPV 11.5 H Neut % (Auto) 80.6 H Lymph % (Auto) 9.8 L [place] % (Auto) Lymph # (Auto) 0.75 L VBG Lactic Acid 2.2 H Potassium 6.2 H* BUN 66 H Creatinine 8.3 H* Glucose 106 H Uric Acid NT-Pro-B Natriuret Pep 97326.0 H Total Protein Albumin Procalcitonin Urine Appearance Urine Occult Blood Ur Leukocyte Esterase Urine RBC Urine WBC Ur Squamous Epith Cells Ur Transition Epith Cell Meds: Medications Acetaminophen (Tylenol) 650 mg PO Q6HP PRN PRN Reason: PAIN/FEVER > 101 Albuterol/Ipratropium (Duoneb) 3 ml NEB Q4HP PRN PRN Reason: Shortness Of Breath Docusate Sodium (Colace) 100 mg PO BID [facility] Last Admin: 06/09/20 20:38 Dose: Not Given Documented by: Furosemide (Lasix) 100 mg IV Q12 [facility] Last Admin: 06/09/20 21:12 Dose: 100 mg Documented by: Heparin Sodium (Porcine) (Heparin) 5,000 unit SQ Q12 [facility] Last Admin: 06/09/20 21:12 Dose: 5,000 unit Documented by: Potassium Chloride 40 meq/ (Dextrose) 520 mls @ 130 mls/hr IV UD PRN PRN Reason: Potassium < 3 Magnesium Sulfate (Magnesium Sulfate) 2 gm in 50 mls @ 50 mls/hr IV UD PRN PRN Reason: Magnesium </= 1.6 Ceftriaxone Sodium 2 gm/ (Dextrose) 50 mls @ 100 mls/hr IV Q24H [facility] Last Infusion: 06/09/20 13:19 Dose: Infused Documented by: Norepinephrine Bitartrate 16 (mg/ Sodium Chloride) 250 mls @ 9.375 mls/hr IV PRN PRN; Protocol PRN Reason: Blood Pressure - Low Sodium Chloride (Sodium Chloride 0.9%) 250 mls @ 20 mls/hr IV .[id number] [facility] Last Admin: 06/09/20 20:40 Dose: Not Given Documented by: Acetaminophen (Ofirmev) 650 mg in 65 mls @ 130 mls/hr IV Q6HP PRN; Protocol PRN Reason: PAIN/FEVER > 101 Last Infusion: 06/09/20 22:04 Dose: Infused Documented by: Vasopressin 20 unit/ Dextrose 100 mls @ 12 mls/hr IV PRN PRN; Protocol PRN Reason: for systolic bp <100 duing lin Sodium Chloride (Sodium Chloride 0.9%) 250 mls @ 20 mls/hr IV .[id number] [facility] Last Admin: 06/09/20 22:10 Dose: Not Given Documented by: Levothyroxine Sodium (Synthroid) 150 mcg PO ACB [facility] Last Admin: 06/10/20 07:49 Dose: 150 mcg Documented by: Midodrine (Midodrine Hcl) 5 mg PO TID PRN PRN Reason: hypotension Last Admin: 06/09/20 17:29 Dose: 5 mg Documented by: Ondansetron HCl (Zofran) 4 mg IV Q4HP PRN PRN Reason: Nausea And Vomiting Camphor-Menthol (Ointment) 1 dose TOPICAL Q6HP PRN PRN Reason: Pain Polyethylene Glycol (Miralax) 17 gm PO BIDP PRN PRN Reason: Constipation Potassium Chloride (Kdur) 40 meq PO UD PRN PRN Reason: Potassium < 3 Senna (Senokot) 2 tab PO DAILYP PRN PRN Reason: Constipation Sertraline HCl (Zoloft) 50 mg PO HS [facility] Last Admin: 06/09/20 21:13 Dose: 50 mg Documented by: Sevelamer Carbonate (Renvela) 800 mg PO AC [facility] Last Admin: 06/09/20 17:51 Dose: Not Given Documented by: Simvastatin (Zocor) 20 mg PO HS [facility] Last Admin: 06/09/20 21:13 Dose: 20 mg Documented by: Sodium Chloride (Saline Flush) 10 ml IV Q8 [facility] Last Admin: 06/10/20 04:45 Dose: 10 ml Documented by: Tramadol HCl (Ultram) 50 mg PO Q12HP PRN; Protocol PRN Reason: Pain Last Admin: 06/08/20 15:39 Dose: 50 mg Documented by: A/P Assessment and plan (1) ESRD (end stage renal disease) on dialysis: Status: Acute Narrative A/P Narrative: A: *Acute on chornic hypoxic/hypercapnic respiratory failure (4L O2@home): 2/2 pulm edema & Asp PNA, missed several HD sessions -now on 2L NC. covid neg -CXR with near complete resolution of chr, moderate atelectasis and left pleural effusion, small right base infiltrate *Acute on chronic diastolic CHF (home O2 is 4L): -improving *Aspiration PNA: *Atelectasis/Pleural effusions: *Intermittent hypotension usually with dialysis: *Hyperkalemia: resolved *ESRD: Follows with Dr. Roy *Anemia, chronic: *UTI: *RELL: has not been on cpap at home *Depression: *Lymphedema b/l LE: *Hypothyroidism: *Dementia: she states brother is POA *Obesity: * P: -HD and hyperkalemia per Dr. Roy -O2 support and wean as able -Rocephin, pending UC -home cpap -cont home midodrine prn -ST eval, dysphagia diet -pT/OT -Case management for placement -ppx: Heparin/TEDS or lymph wraps Code status: sounds like she would prefer to be a DNR, I encouraged her to talk to family so all are on the same page Time Spent With Patient Time: Total time spent is greater than 50% in coordination of care (as documented) at patient's floor/unit and/or counseling patient: QUALITY VTE Deep Vein Thrombosis/Pulmonary Embolism Present on Admission: No
[2020-06-10] MEDS: SEVELAMER 800 MG TABLET PO SCH ×3 (08:17→18:48)
[2020-06-10] MEDS: FUROSEMIDE 100 MG/10 ML VIAL IV SCH ×2 (09:48→21:37)
[2020-06-10] MEDS: HEPARIN 5,000 UNIT/ML VIAL SQ SCH ×3 (09:48→21:40)
[2020-06-10] MEDS: ACETAMINOPHEN 650 MG/65 ML BAG IV PRN (09:49)
[2020-06-10] MEDS: cefTRIAXone 2 GM in DEXTROSE 5% IN WATER 50 ML IV SCH (09:49)
[2020-06-10] MEDS: 0.9 % SODIUM CHLORIDE 250 ML IV SCH ×4 (12:15→22:29)
[2020-06-10] MEDS: DOCUSATE SODIUM 100 MG CAPSULE PO SCH ×2 (12:15→21:33)
[2020-06-10] MEDS: SERTRALINE 50 MG TABLET PO SCH (21:33)
[2020-06-10] MEDS: SIMVASTATIN 20 MG TABLET PO SCH (21:33)
[2020-06-11] MEDS: 0.9 % SODIUM CHLORIDE 10 ML SYRINGE IV SCH ×3 (05:11→22:14)
[2020-06-11 06:03] LABS: Basophils # (Auto) 0.06 K/mcL (0.00-0.20); Basophils % (Auto) 1.3 % (0.0-2.0); Eosinophils # (Auto) 0.13 K/mcL (0.00-0.70); Eosinophils % (Auto) 2.8 % (0.0-7.0); Hematocrit 29.4 % (36.0-48.0); Hemoglobin 8.7 g/dL (12.0-15.0); Lymphocytes # (Auto) 0.88 K/mcL (1.50-4.80); Lymphocytes % (Auto) 19.1 % (15.0-49.0); Mean Cell Volume 100.3 fL (80.0-100.0); Mean Corpuscular HGB Conc 29.6 g/dL (31.0-36.0); Mean Platelet Volume 11.1 fL (7.4-10.4); Monocytes # (Auto) 0.62 K/mcL (0.10-0.90); Monocytes % (Auto) 13.4 % (1.0-12.0); Neutrophils % (Auto) 63.4 % (38.0-78.0); Platelet Count 196 K/mcL (140-440); RBC 2.93 M/mcL (4.00-5.20); Red Cell Distribution Width 15.6 % (11.5-14.5); WBC 4.6 K/mcL (4.5-11.0)
--- NOTE | 2020-06-11 07:45 | Internal Med Progress Note ---
SUBJECTIVE Subjective Patient information: Note initiated : 06/11/20 at 7:42 am Service Date, if different from initiated Date: [] Patient: Marianna Valencia a 84 y/o F admitted on 06/08/20 for SOB . Chief Complaint: [] Interval history: History of present illness: Ms. Valencia is a 84 year old F Patient presents from [facility] due to increased shortness of breath and decreased LOC and hypoxic. She is refused last several sessions of hemodialysis . She does have a history of dementia. She also recently stopped her antidepressants. Chest x-ray doing volume overload. She typically is on 4 L of oxygen but was satting around 80 on arrival to the ED. Is currently on 7 L oxygen mask in the ICU. She says she does not feel too bad. She says her shortness of breath is not too bad. She says she has had nocturnal coughing for the over the past 6 months. Report of diarrhea per ICU staff She received Kayexalate and Lasix per Dr. Roy and will get urgent hemodialysis. 06/09 Intermittent low blood pressures. Did not do well with IV morphine last night. Was unable to take home tramadol orally because of concern for aspiration. Will change IV Tylenol. May get dialysis today. Chest x-ray much improved pulmonary edema also shows atelectasis and likely some right base infiltrate from aspiration. 06/10 Doing better. Oxygen requirement less than home regimen. Electrolytes improved. Mentation much improved 06/11 Doing well. Transfer to med/surg status. Weight speech therapy evaluation Review of Systems: denies headache/fever/chills/nausea/vomiting/chest or abdominal pain/diarrhea. Otherwise see above. Constitutional Vitals: Vital Signs Temp Pulse Resp BP Pulse Ox 97.1 F 101 H 21 134/80 100 06/11/20 04:00 06/11/20 06:02 06/11/20 07:01 06/11/20 07:01 06/11/20 07:01 Period Temp Pulse Resp BP Sys/Schaefer Pulse Ox Last 24 Hr 97.1 F-98.7 F 80-120 16-31 115-150/42-104 86-100 Intake and Output 06/10/20 06/11/20 06/11/20 21:59 05:59 13:59 Intake Total 200 120 Balance 200 120 Weight 89.086 kg Intake & Output: Intake & Output 06/10/20 06/11/20 06/11/20 21:59 05:59 13:59 Intake Total 200 120 Balance 200 120 Weight 89.086 kg Intake: Oral 200 120 Exam: General: Alert, Awake, No acute Distress Eyes/N/T: EOMI, , Head/Neck: neck supple, CV: RRR, 2/6 SM Pulm: clearing b/l, no wheezing Abd: soft, nontender, +BS x4 Ext: no clubbing/cyanosis, b/l LE 2+ edema improved Neuro: Alert, no focal deficits, moves all extremities, Skin: warm/dry OBJ DATA Labs CBC & Chem 7: 06/11/20 05:10 06/10/20 04:58 Labs: Abnormal Lab Results 06/11/20 06/10/20 06/10/20 05:10 04:59 04:58 RBC 2.93 L Hgb 8.7 L Hct 29.4 L MCV 100.3 H MCHC 29.6 L RDW 15.6 H MPV 11.1 H Neut % (Auto) Lymph % (Auto) [place] % (Auto) 13.4 H Lymph # (Auto) 0.88 L VBG Lactic Acid Potassium BUN Creatinine 2.5 H Glucose Uric Acid 1.7 L NT-Pro-B Natriuret Pep Total Protein 5.7 L Albumin 3.0 L Procalcitonin 0.50 H Urine Appearance Urine Occult Blood Ur Leukocyte Esterase Urine RBC Urine WBC Ur Squamous Epith Cells Ur Transition Epith Cell 06/09/20 06/09/20 06/09/20 17:50 17:50 04:54 RBC 3.11 L Hgb 9.5 L Hct 35.7 L MCV 114.8 H MCHC 26.6 L RDW 17.2 H MPV 10.8 H Neut % (Auto) Lymph % (Auto) 11.5 L [place] % (Auto) 13.4 H Lymph # (Auto) 0.66 L VBG Lactic Acid Potassium BUN Creatinine 2.8 H Glucose Uric Acid 1.9 L NT-Pro-B Natriuret Pep Total Protein Albumin 3.1 L Procalcitonin 0.46 H Urine Appearance Urine Occult Blood Ur Leukocyte Esterase Urine RBC Urine WBC Ur Squamous Epith Cells Ur Transition Epith Cell 06/08/20 06/08/20 06/08/20 02:03 01:53 01:53 RBC Hgb Hct MCV MCHC RDW MPV Neut % (Auto) Lymph % (Auto) [place] % (Auto) Lymph # (Auto) VBG Lactic Acid 2.2 H Potassium 6.2 H* BUN 66 H Creatinine 8.3 H* Glucose 106 H Uric Acid NT-Pro-B Natriuret Pep 13613.0 H Total Protein Albumin Procalcitonin Urine Appearance Turbid A Urine Occult Blood 0.03 A Ur Leukocyte Esterase 250 A Urine RBC > 182 H Urine WBC > 182 H Ur Squamous Epith Cells 7 H Ur Transition Epith Cell 7 H 06/08/20 01:53 RBC 3.57 L Hgb 10.7 L Hct MCV 103.4 H MCHC 29.0 L RDW 16.6 H MPV 11.5 H Neut % (Auto) 80.6 H Lymph % (Auto) 9.8 L [place] % (Auto) Lymph # (Auto) 0.75 L VBG Lactic Acid Potassium BUN Creatinine Glucose Uric Acid NT-Pro-B Natriuret Pep Total Protein Albumin Procalcitonin Urine Appearance Urine Occult Blood Ur Leukocyte Esterase Urine RBC Urine WBC Ur Squamous Epith Cells Ur Transition Epith Cell Meds: Medications Acetaminophen (Tylenol) 650 mg PO Q6HP PRN PRN Reason: PAIN/FEVER > 101 Albuterol/Ipratropium (Duoneb) 3 ml NEB Q4HP PRN PRN Reason: Shortness Of Breath Docusate Sodium (Colace) 100 mg PO BID [facility] Last Admin: 06/10/20 21:33 Dose: Not Given Documented by: Furosemide (Lasix) 100 mg IV Q12 [facility] Last Admin: 06/10/20 21:37 Dose: 100 mg Documented by: Heparin Sodium (Porcine) (Heparin) 5,000 unit SQ Q12 [facility] Last Admin: 06/10/20 21:40 Dose: 5,000 unit Documented by: Potassium Chloride 40 meq/ (Dextrose) 520 mls @ 130 mls/hr IV UD PRN PRN Reason: Potassium < 3 Magnesium Sulfate (Magnesium Sulfate) 2 gm in 50 mls @ 50 mls/hr IV UD PRN PRN Reason: Magnesium </= 1.6 Ceftriaxone Sodium 2 gm/ (Dextrose) 50 mls @ 100 mls/hr IV Q24H [facility] Last Admin: 06/10/20 09:49 Dose: 100 mls/hr Documented by: Norepinephrine Bitartrate 16 (mg/ Sodium Chloride) 250 mls @ 9.375 mls/hr IV PRN PRN; Protocol PRN Reason: Blood Pressure - Low Sodium Chloride (Sodium Chloride 0.9%) 250 mls @ 20 mls/hr IV .[id number] [facility] Last Admin: 06/10/20 22:29 Dose: Not Given Documented by: Acetaminophen (Ofirmev) 650 mg in 65 mls @ 130 mls/hr IV Q6HP PRN; Protocol PRN Reason: PAIN/FEVER > 101 Last Infusion: 06/10/20 10:19 Dose: Infused Documented by: Vasopressin 20 unit/ Dextrose 100 mls @ 12 mls/hr IV PRN PRN; Protocol PRN Reason: for systolic bp <100 duing lin Sodium Chloride (Sodium Chloride 0.9%) 250 mls @ 20 mls/hr IV .[id number] [facility] Last Admin: 06/10/20 22:29 Dose: Not Given Documented by: Levothyroxine Sodium (Synthroid) 150 mcg PO ACB [facility] Last Admin: 06/10/20 07:49 Dose: 150 mcg Documented by: Midodrine (Midodrine Hcl) 5 mg PO TID PRN PRN Reason: hypotension Last Admin: 06/09/20 17:29 Dose: 5 mg Documented by: Ondansetron HCl (Zofran) 4 mg IV Q4HP PRN PRN Reason: Nausea And Vomiting Camphor-Menthol (Ointment) 1 dose TOPICAL Q6HP PRN PRN Reason: Pain Polyethylene Glycol (Miralax) 17 gm PO BIDP PRN PRN Reason: Constipation Potassium Chloride (Kdur) 40 meq PO UD PRN PRN Reason: Potassium < 3 Senna (Senokot) 2 tab PO DAILYP PRN PRN Reason: Constipation Sertraline HCl (Zoloft) 50 mg PO HS [facility] Last Admin: 06/10/20 21:33 Dose: 50 mg Documented by: Sevelamer Carbonate (Renvela) 800 mg PO AC [facility] Last Admin: 06/10/20 18:48 Dose: 800 mg Documented by: Simvastatin (Zocor) 20 mg PO HS [facility] Last Admin: 06/10/20 21:33 Dose: 20 mg Documented by: Sodium Chloride (Saline Flush) 10 ml IV Q8 [facility] Last Admin: 06/11/20 05:11 Dose: 10 ml Documented by: Tramadol HCl (Ultram) 50 mg PO Q12HP PRN; Protocol PRN Reason: Pain Last Admin: 06/08/20 15:39 Dose: 50 mg Documented by: A/P Narrative A/P Narrative: A: *Acute on chornic hypoxic/hypercapnic respiratory failure (4L O2@home): 2/2 pulm edema & Asp PNA, missed several HD sessions -now on 1-2L NC. covid neg -CXR with near complete resolution of chr, moderate atelectasis and left pleural effusion, small right base infiltrate *Acute on chronic diastolic CHF (home O2 is 4L): -improving *Aspiration PNA: *Atelectasis/Pleural effusions: *Intermittent hypotension usually with dialysis: improved *Hyperkalemia: resolved *ESRD: Follows with Dr. Roy *Anemia, chronic: *UTI: *RELL: has not been on cpap at home *Depression: *Lymphedema b/l LE: *Hypothyroidism: *Dementia: she states brother is POA *Obesity: * P: -HD and hyperkalemia per Dr. Roy -O2 support and wean as able -Rocephin, pending UC -home cpap -cont home midodrine prn -ST eval, dysphagia diet -pT/OT -Case management for placement -ppx: Heparin/TEDS or lymph wraps Code status: sounds like she would prefer to be a DNR, I encouraged her to talk to family so all are on the same page Time Spent With Patient Time: Total time spent is greater than 50% in coordination of care (as d ocumented) at patient's floor/unit and/or counseling patient: QUALITY VTE Deep Vein Thrombosis/Pulmonary Embolism Present on Admission: No
[2020-06-11] MEDS: SEVELAMER 800 MG TABLET PO SCH ×3 (08:04→17:05)
[2020-06-11 08:24] LABS: Blood Urea Nitrogen 19 mg/dL (8-23); Calcium 9.4 mg/dL (8.6-10.4); Carbon Dioxide 27 mmol/L (22-30); Chloride 93 mmol/L (96-108); Glomerular Filtration Rate 13; Glucose 85 mg/dL (70-105)
[2020-06-11] MEDS: LEVOTHYROXINE 150 MCG TABLET PO SCH (08:38)
[2020-06-11] MEDS: FUROSEMIDE 100 MG/10 ML VIAL IV SCH (08:38)
[2020-06-11] MEDS: DOCUSATE SODIUM 100 MG CAPSULE PO SCH ×2 (08:39→21:54)
[2020-06-11] MEDS: cefTRIAXone 2 GM in DEXTROSE 5% IN WATER 50 ML IV SCH (08:40)
[2020-06-11] MEDS: HEPARIN 5,000 UNIT/ML VIAL SQ SCH ×2 (08:46→22:13)
--- NOTE | 2020-06-11 10:29 | Discharge Summary ---
Discharge Provider Provider Patient information: Note initiated : 06/11/20 at 10:26 am Service Date, if different from initiated Date: [] Patient: Marianna Valencia 84 y/o F admitted on 06/08/20 for SOB . Chief Complaint: [] Date of admission: 06/08/20 09:16 Discharge date: 06/12/20 Primary care physician: Parish Millan Consults: 06/08/20 08:06 Consult to Physician [CONS] Stat Comment: Consulting Provider: Leonard Avila Reason For Exam: Physician to Consult Consult to Physician [CONS] Stat Comment: Consulting Provider: Rajiv García Reason For Exam: Physician to Consult Discharge Meds Discharge Medications Home Medications furosemide 80 mg tablet 80 mg PO QDAY 07/27/18 [History Confirmed 06/08/20 Last Taken Unknown] lovastatin 40 mg tablet 40 mg PO QDAY tab 07/27/18 [History Confirmed 06/08/20 Last Taken Unknown] midodrine 10 mg tablet 20 mg PO QDAY tab 07/27/18 [History Confirmed 06/08/20 Last Taken Unknown] Fleet Enema 118 ml NJ PRN PRN 06/08/20 [History Confirmed 06/08/20 Last Taken U nknown] acetaminophen 500 mg PO Q8H PRN 06/08/20 [History Confirmed 06/08/20 Last Taken Unknown] ascorbic acid (vitamin C) [Vitamin C] 500 mg PO QDAY 06/08/20 [History Confirmed 06/08/20 Last Taken Unknown] bisacodyl 10 mg [place] QDAY PRN 06/08/20 [History Confirmed 06/08/20 Last Taken Unknown] bisacodyl [Dulcolax (bisacodyl)] 5 mg PO DAILY PRN 06/08/20 [History Confirmed 06/08/20 Last Taken Unknown] camphor-menthol 1 applic TOPICAL Q6H PRN 06/08/20 [History Confirmed 06/08/20 Last Taken Unknown] docusate sodium [Colace] 100 mg PO BID 06/08/20 [History Confirmed 06/08/20 Last Taken Unknown] levothyroxine 150 mcg PO QDAY 06/08/20 [History Confirmed 06/08/20 Last Taken Unknown] polyethylene glycol 3350 [GlycoLax] 17 g PO BID PRN 06/08/20 [History Confirmed 06/08/20 Last Taken Unknown] sertraline 25 mg PO QDAY 06/08/20 [History Confirmed 06/08/20 Last Taken Unknown] sevelamer carbonate [Renvela] 0.8 g PO AC 06/08/20 [History Confirmed 06/08/20 Last Taken Unknown] amoxicillin-pot clavulanate [Augmentin] 1 tab PO Q12H #2 tab 06/11/20 [Rx Last Taken Unknown] tramadol See Rx Instructions PO QID PRN #20 tab 06/12/20 [Rx Last Taken Unknown] COURSE Hospital Course Hospital course: History of present illness: Ms. Valencia is a 84 year old F Patient presents from [facility] due to increased shortness of breath and decreased LOC and hypoxic. She is refused last several sessions of hemodialysis. She does have a history of dementia. She also recently stopped her antidepressants. Chest x-ray doing volume overload. She typically is on 4 L of oxygen but was satting around 80 on arrival to the ED. Is currently on 7 L oxygen mask in the ICU. She says she does not feel too bad. She says her shortness of breath is not too bad. She says she has had nocturnal coughing for the over the past 6 months. Report of diarrhea per ICU staff She received Kayexalate and Lasix per Dr. Roy and will get urgent hemodialysis. 06/09 Intermittent low blood pressures. Did not do well with IV morphine last night. Was unable to take home tramadol orally because of concern for aspiration. Will change IV Tylenol. May get dialysis today. Chest x-ray much improved pulmonary edema also shows atelectasis and likely some right base infiltrate from aspiration. 06/10 Doing better. Oxygen requirement less than home regimen. Electrolytes improved. Mentation much improved 06/11 Doing well. Transfer to med/surg status. Weight speech therapy evaluation 06/12 no new issues. Confusion on whether or not she has CPAP at home for obstructive sleep apnea. She does not she needs evaluation for it. A: *Acute on chornic hypoxic/hypercapnic respiratory failure (4L O2@home): 2/2 pulm edema & Asp PNA, missed several HD sessions *Acute on chronic diastolic CHF (home O2 is 4L): *Aspiration PNA: *Atelectasis/Pleural effusions: *Intermittent hypotension usually with dialysis: improved *Hyperkalemia: resolved *ESRD: Follows with Dr. Roy *Anemia, chronic: *UTI: *RELL: ?has not been on cpap at home *Depression: *Lymphedema b/l LE: *Hypothyroidism: *Dementia: she states brother is POA *Obesity: Discharge diagnosis: Acute on chronic hypoxic hypercapnic respiratory failure acute on chronic d Secondary discharge diagnosis: Acute on chronic diastolic heart failure aspiration pneumonia atelectasis hyperkalemia end-stage renal disease chronic anemia UTI obstructive sleep apnea depression lymphedema hypothyroidism and dementia obesity Time Spent with Patient Time attestation: Total time spent providing and/or coordinating discharge services: Time spent: Greater than 30 minutes EXAM Constitutional Vitals: Temp Pulse Resp BP Pulse Ox 98.7 F 89 21 132/97 93 06/11/20 08:01 06/11/20 08:01 06/11/20 10:01 06/11/20 10:01 06/11/20 10:01 Discharge Data Data Completed and Pending Labs on day of discharge: Labs from last 24 hours 06/11/20 06/11/20 05:10 05:10 WBC 4.6 RBC 2.93 L Hgb 8.7 L Hct 29.4 L MCV 100.3 H MCH 29.7 MCHC 29.6 L RDW 15.6 H Plt Count 196 MPV 11.1 H Neut % (Auto) 63.4 Lymph % (Auto) 19.1 [place] % (Auto) 13.4 H Eos % (Auto) 2.8 Baso % (Auto) 1.3 Lymph # (Auto) 0.88 L [place] # (Auto) 0.62 Eos # (Auto) 0.13 Baso # (Auto) 0.06 Absolute Neutrophils 2.92 Sodium 134 Potassium 3.3 Chloride 93 L Carbon Dioxide 27 Anion Gap 14.0 BUN 19 Creatinine 3.2 H GFR Calculation 13 Glucose 85 Calcium 9.4 Discharge Plan Patient/Caregiver Discharge Instructions Activity: increase activity as tolerated Diet: Dysphagia Level 7 Easy to Chew Foods Activity Restrictions/Additional Instructions: Follow-up with speech therapy, PT and OT Prescriptions: New amoxicillin-pot clavulanate [Augmentin] 875-125 mg tablet 1 tab PO Q12H Qty: 2 RF: 0 Continued furosemide 80 mg tablet 80 mg PO QDAY RF: 0 lovastatin 40 mg tablet 40 mg PO QDAY RF: 0 midodrine 10 mg tablet 20 mg PO QDAY RF: 0 levothyroxine 150 mcg tablet 150 mcg PO QDAY RF: 0 sertraline 50 mg tablet 25 mg PO QDAY RF: 0 acetaminophen 500 mg Tablet 500 mg PO Q8H PRN (Reason: Pain) RF: 0 ascorbic acid (vitamin C) [Vitamin C] 500 mg Tablet 500 mg PO QDAY RF: 0 camphor-menthol Ointment 1 applic TOPICAL Q6H PRN (Reason: Pain) RF: 0 bisacodyl 10 mg Suppository 10 mg [place] QDAY PRN (Reason: Constipation) RF: 0 Fleet Enema 19-7 gram/118 mL Enema 118 ml [place] PRN PRN (Reason: Constipation) RF: 0 docusate sodium [Colace] 100 mg Capsule 100 mg PO BID RF: 0 bisacodyl [Dulcolax (bisacodyl)] 5 mg Tablet,Delayed Release (Dr/Ec) 5 mg PO DAILY PRN (Reason: Constipation) RF: 0 polyethylene glycol 3350 [GlycoLax] 17 gram/dose Powder 17 g PO BID PRN (Reason: Constipation) RF: 0 sevelamer carbonate [Renvela] 0.8 gram Powder In Packet 0.8 g PO AC RF: 0 tramadol 50 mg tablet See Rx Instructions PO QID PRN (Reason: Pain) Qty: 20 RF: 0 Follow Up Plan Follow up with: Constantine Roy MD [Physician] - Parish Millan MD [Primary Care Provider] - Tariq Clarke MD [Physician] - (RELL, cpap eval) Patient Disposition: Xfer SNF Prognosis: Undetermined Rehab Potential: Fair I certify that the patient requires SNF services: Yes Overall status at discharge: patient is progressing back to baseline Discharge Orders: Discharge Order (Routine); Ordered 06/12/20 Ordered By: Leonard Krause Counts include 234 beds at the [facility] VTE Deep Vein Thrombosis/Pulmonary Embolism Present on Admission: No
[2020-06-11] MEDS ORDERED: ONDANSETRON 4 MG/2 ML VIAL IV PRN (10:35)
[2020-06-11] MEDS ORDERED: SENNOSIDES 1 TABLET PO PRN (10:35)
[2020-06-11] MEDS ORDERED: IPRATROPIUM/ALBUTEROL 3 ML AMPUL.NEB NEB PRN (10:35)
[2020-06-11] MEDS ORDERED: traMADol 50 MG TABLET PO PRN (10:35)
[2020-06-11] MEDS ORDERED: NOREPINEPHRINE BITARTRATE 16 MG in 0.9 % SODIUM CHLORIDE 234 ML IV PRN (10:35)
[2020-06-11] MEDS ORDERED: MAGNESIUM SULFATE 2 GM/50 ML BAG IV PRN (10:35)
[2020-06-11] MEDS ORDERED: VASOPRESSIN 20 UNIT in DEXTROSE 5% IN WATER 99 ML IV PRN (10:35)
[2020-06-11] MEDS ORDERED: ACETAMINOPHEN 650 MG/65 ML BAG IV PRN (10:35)
[2020-06-11] MEDS ORDERED: POTASSIUM CHLORIDE 40 MEQ in DEXTROSE 5% IN WATER 500 ML IV PRN (10:35)
[2020-06-11] MEDS ORDERED: POTASSIUM CHLORIDE 20 MEQ TABLET PO PRN (10:35)
[2020-06-11] MEDS ORDERED: 0.9 % SODIUM CHLORIDE 250 ML IV SCH ×3 (10:35)
[2020-06-11] MEDS ORDERED: CAMPHOR MENTHOL TOPICAL PRN (10:35)
[2020-06-11] MEDS ORDERED: ACETAMINOPHEN 325 MG TABLET PO PRN (10:35)
[2020-06-11] MEDS ORDERED: POLYETHYLENE GLYCOL 3350 17 GM PACKET PO PRN (10:35)
[2020-06-11] MEDS ORDERED: MIDODRINE 5 MG TABLET PO PRN (10:35)
--- NOTE | 2020-06-11 17:04 | Nephrology Progress Note ---
SUBJECTIVE Subjective Patient information: Note initiated : 06/11/20 at 5:02 pm Service Date, if different from initiated Date: [] Patient: Marianna Valencia 84 y/o F admitted on 06/08/20 for SOB . Chief Complaint: Sleepy now but apparently she was awake this morning. Constitutional Vitals: Vital Signs Temp Pulse Resp BP Pulse Ox 97 F 73 16 125/63 94 06/11/20 16:11 06/11/20 16:06 06/11/20 16:11 06/11/20 16:11 06/11/20 16:11 Period Temp Pulse Resp BP Sys/Schaefer Pulse Ox Last 24 Hr 97 F-98.7 F 73-120 15-28 86-151/42-104 93-100 Intake and Output 06/11/20 06/11/20 06/11/20 05:59 13:59 21:59 Intake Total 120 50 Output Total 2000 Balance 120 50 -2000 Intake & Output: Intake & Output 06/11/20 06/11/20 06/11/20 05:59 13:59 21:59 Intake Total 120 50 Output Total 2000 Balance 120 50 -2000 Intake: IV 50 Rocephin 2 gm In Dextrose 5% in 50 Water 50 ml @ 100 mls/hr IV Q24H [id number] Rx#:[id number] Oral 120 Output: Hemodialysis UF 2000 NC/AT Lungs clear cardiac regular trace edema. A/P Narrative A/P Narrative: ESRD. Had HD today. She is sleepy this afternoon but did ok all day. Can discharge and will have HD on thursday as outpatient. Time Spent With Patient Time: Total time spent is greater than 50% in coordination of care (as documented) at patient's floor/unit and/or counseling patient:
[2020-06-11] MEDS ORDERED: FUROSEMIDE 100 MG/10 ML VIAL IV SCH (21:00)
[2020-06-11] MEDS ORDERED: SIMVASTATIN 20 MG TABLET PO SCH (21:00)
[2020-06-11] MEDS ORDERED: SERTRALINE 50 MG TABLET PO SCH (21:00)
[2020-06-12] MEDS: 0.9 % SODIUM CHLORIDE 10 ML SYRINGE IV SCH (05:15)
[2020-06-12] MEDS ORDERED: LEVOTHYROXINE 150 MCG TABLET PO SCH (07:30)
[2020-06-12] MEDS ORDERED: cefTRIAXone 2 GM in DEXTROSE 5% IN WATER 50 ML IV SCH (09:00)
[2020-06-12] MEDS ORDERED: FUROSEMIDE 80 MG TABLET PO SCH (09:00)
[2020-06-12] MEDS: SEVELAMER 800 MG TABLET PO SCH ×2 (10:37→12:11)
[2020-06-12] MEDS: DOCUSATE SODIUM 100 MG CAPSULE PO SCH (10:38)
[2020-06-12] MEDS: HEPARIN 5,000 UNIT/ML VIAL SQ SCH (10:38)
== END 2020-06-12 14:47 | DRG 189 ==
LOC: ED 01:41 → ICU 09:15 → MEDSUR 06-11 15:45
PROVIDERS: ADMIT Internal Medicine; ATTEND Internal Medicine